=== PATIENT | male | born 1935 | race Caucasian/White ===

== ENCOUNTER 2017-11-09 18:27 | Emergency (ER) | payer MEDICARE, OTHER ==
[2017-11-09 19:31] LABS: Bilirubin Negative (Negative); Blood, Urine Small (Negative); Clarity TURBID (Clear); Glucose, Urine (Dipstick) Negative (Negative); Leukocyte Moderate (Negative); Nitrite Positive (Negative); Protein, Urine (Dipstick) 100 mg/dL (Neg-Trace); Specific Gravity, Urine 1.016 (1.002-1.036); Urobilinogen 0.2 mg/dL (0.2-1.0)
[2017-11-09 19:34] LABS: Bacteria/HPF 3+ HPF (None Seen); Pathc Cast-AUWi Flag 0.72 (0-2.49); RBC/HPF 0-3 HPF (0-3)
[2017-11-09 19:43] LABS: Hyaline Casts/LPF 0-3 HYALINE CAST LPF (0-3 Hyaline); Squamous Epithelial 0-3 HPF (0-3)
[2017-11-09 19:46] LABS: #Eosinphils 0.1 thou/uL (0.0-0.7); #Lymphocytes 1.3 thou/uL (1.20-3.40); #Monocytes 1.4 thou/uL (0.11-0.59); #Neutrophils 12.1 thou/uL (1.40-6.50); %Basophils 0.2 % (0.0-1.0); %Eosinophils 0.5 % (0.0-10.0); %Neutrophils 81.3 % (42.0-75.0); Hemoglobin 12.9 g/dL (14.0-18.0); Mean Corpuscular HGB CONC 33.3 g/dL (32.0-36.0); Mean Corpuscular Hemoglobin 30.3 pg (27.0-31.0); Mean Corpuscular Volume 91.1 fL (78.0-98.0); Mean Platelet Volume 7.6 fL (7.4-10.4); Platelet Count 194 thou/uL (130-400); Red Blood Cell (RBC) Count 4.24 mill/uL (4.70-6.10); White Blood Cell (WBC) Count 14.9 thou/uL (4.8-10.8)
[2017-11-09 20:05] LABS: ALT (SGPT) 9 U/L (8-55); AST (SGOT) 17 U/L (5-34); Albumin 4.3 g/dL (3.4-4.8); Alkaline Phosphatase 67 U/L (40-150); Anion Gap 15 mmol/L (10-20); BUN (Urea Nitrogen) 12 mg/dL (8.4-25.7); Bilirubin, Total 1.3 mg/dL (0.2-1.2); Calc. Creatinine Clearance 0 mL/min (70-130); Calcium 9.4 mg/dL (7.8-10.44); Carbon Dioxide 22 mmol/L (23-31); Chloride 99 mmol/L (98-107); Estimated GFR-MDRD 65; Globulin 3.9 g/dL (2.4-3.5); Glucose 110 mg/dL (83-110); Potassium 3.6 mmol/L (3.5-5.1); Protein, Total 8.2 g/dL (5.8-8.1); Sodium 132 mmol/L (136-145)
[2017-11-09] MEDS ORDERED: cefTRIAXone\\ROCEPHIN 2 GM VIAL ONE (20:12)
== END 2017-11-09 22:01 | disposition home or self-care (01) ==
LOC: ERS 18:27
DX: N30.00 Acute cystitis without hematuria (principal)
CPT/HCPCS: 36415; 80053; 81003; 81015; 83605; 85025; 87040; 87077; 87086; 87186; 96365; J0696

== ENCOUNTER 2020-01-04 18:42 | Inpatient (IN) | payer MEDICARE, OTHER ==
[2020-01-04 19:46] LABS: #Eosinphils 0.6 thou/uL (0.0-0.7); #Lymphocytes 0.8 thou/uL (1.20-3.40); #Monocytes 0.5 thou/uL (0.11-0.59); #Neutrophils 6.6 thou/uL (1.40-6.50); %Basophils 0.3 % (0.0-1.0); %Lymphocytes 9.4 % (21.0-51.0); %Monocytes 6.3 % (0.0-10.0); Hemoglobin 11.5 g/dL (14.0-18.0); Mean Corpuscular HGB CONC 34.3 g/dL (32.0-36.0); Mean Corpuscular Hemoglobin 30.9 pg (27.0-31.0); Mean Corpuscular Volume 90.2 fL (78.0-98.0); Mean Platelet Volume 7.6 fL (7.4-10.4); Platelet Count 150 thou/uL (130-400); RBC Distribution Width 12.3 % (11.5-14.5); Red Blood Cell (RBC) Count 3.72 mill/uL (4.70-6.10); White Blood Cell (WBC) Count 8.6 thou/uL (4.8-10.8)
[2020-01-04 20:13] LABS: ALT (SGPT) 9 U/L (8-55); AST (SGOT) 20 U/L (5-34); Albumin 3.8 g/dL (3.4-4.8); Alkaline Phosphatase 60 U/L (40-110); Anion Gap 14 mmol/L (10-20); BUN (Urea Nitrogen) 15 mg/dL (8.4-25.7); Bilirubin, Total 0.8 mg/dL (0.2-1.2); Calc. Creatinine Clearance 0 mL/min (70-130); Carbon Dioxide 25 mmol/L (23-31); Chloride 103 mmol/L (98-107); Estimated GFR-MDRD 65; Globulin 3.3 g/dL (2.4-3.5); Glucose 104 mg/dL (83-110); Potassium 3.9 mmol/L (3.5-5.1); Protein, Total 7.1 g/dL (5.8-8.1); Sodium 138 mmol/L (136-145)
--- NOTE | 2020-01-04 20:32 | RAD ---
Radiograph right hip 2 views: 01/04/2020 7:56 PM HISTORY: 84-year-old male status post acute right hip trauma from fall. FINDINGS: There is fracture at the inferior portion of the right femoral neck, with varus angulation. No disloc ation. IMPRESSION: Acute, traumatic, displaced fracture of the basicervical right femoral neck.
[2020-01-04] MEDS ORDERED: Morphine 4 MG/ML VIAL ONE (20:33)
[2020-01-04] MEDS ORDERED: Ondansetron PF 4 MG/2 ML Vial ONE (20:33)
--- NOTE | 2020-01-04 20:53 | RAD ---
RIGHT WRIST 3 VIEWS: Date: 01/04/2020 HISTORY: Fall with injury and pain. FINDINGS: There is a fracture of the distal radius. This fracture shows mild impaction with transverse componen t. There is a longitudinal component extending to the articular surface. Carpals appear intact. IMPRESSION: Fracture distal radius with impaction. Fracture line extends to the articular surface. POS: AGW
--- NOTE | 2020-01-04 20:57 | RAD ---
PORTABLE CHEST: Date: 01/04/2020 HISTORY: Trauma. FINDINGS: Lungs appear clear. No infiltrate or pneumothorax. Heart and mediastinum unremarkable. Osseous struct ures appear intact. IMPRESSION: No acute findings. POS: AGW
[2020-01-04 21:00] LABS: INR-International Normal Ratio 1.1; PTT 28.1 sec (22.9-36.1); Prothrombin Time 14.8 sec (12.0-14.7)
--- NOTE | 2020-01-04 21:01 | RAD ---
RIGHT KNEE 3 VIEWS: Date: 01/04/2020 HISTORY: Injury. Pain. FINDINGS/IMPRESSION: There has been prior fixation of the proximal tibia. There is a medial plate and screws transfixing t he proximal tibia and the tibial condyles and tibial plateaus. There are degenerative changes at the knee with spurring from the patella. No acute fracture identified. POS: AGW
--- NOTE | 2020-01-04 21:02 | RAD ---
AP PELVIS: Date: 01/04/2020 HISTORY: Fall with injury to right hip. FINDINGS: There is a displaced fracture involving the right femoral neck. Fracture line is at the base of the f emoral neck with mild displacement. Pelvis appears intact. IMPRESSION: Right femoral neck fracture. POS: AGW
[2020-01-04 21:49] LABS: Bilirubin Negative (Negative); Blood, Urine Negative (Negative); Clarity Clear (Clear); Glucose, Urine (Dipstick) Normal (Negative); Ketone, Urine Trace mg/dL (Negative); Leukocyte Negative Leu/uL (Negative); Nitrite Negative (Negative); Protein, Urine (Dipstick) 20 mg/dL (Neg-Trace); Specific Gravity, Urine 1.015 (1.002-1.036); Urobilinogen Normal mg/dL (Less than 2); pH, Urine 5.5 (5.0-9.0)
[2020-01-04] MEDS ORDERED: Ondansetron ODT 4 MG TAB PO PRN (22:12)
[2020-01-04] MEDS ORDERED: Morphine 4 MG/ML VIAL SLOW IVP PRN (22:12)
[2020-01-04] MEDS ORDERED: Dextrose 50% Abboject 50 ML SYRINGE SLOW IVP PRN (22:12)
[2020-01-04] MEDS ORDERED: Dextrose 5% in Water 1,000 ML IV PRN (22:12)
[2020-01-04] MEDS ORDERED: Cyclobenzaprine 10 MG TAB PO PRN (22:12)
[2020-01-04] MEDS ORDERED: Morphine 2 MG/ML VIAL SLOW IVP PRN (22:12)
[2020-01-04] MEDS ORDERED: Famotidine 20 MG TAB PO SCH (22:30)
--- NOTE | 2020-01-04 22:53 | HP ---
REQUESTING PHYSICIAN: Dr. Calix. CONSULTATIONS: Orthopedics, Dr. Tirado. 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 He was brought to the emergency department where he underwent evaluation and examination and was noted to have a right femoral neck fracture at which time we were asked to evaluate the patient for his admission and obtain Orthopedic consultation. The patient denied any loss of consciousness or syncopal episodes surrounding his fall. ALLERGIES: NONE. CURRENT MEDICATIONS: None. PAST MEDICAL HISTORY: Colon cancer. The patient reports being cancer free for 6 years. SURGICAL HISTORY: Colon surgery x8. SOCIAL HISTORY: The patient denies drug, tobacco, or alcohol use. 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 REVIEW OF SYSTEMS: A 10-point review of systems is negative as otherwise stated. PHYSICAL EXAMINATION: VITAL SIGNS: Blood pressure 157/76, heart rate 87, respirations 18, oxygen saturation is 96% on room air, temperature is 98.4. GENERAL: The patient is resting comfortably in bed. He is awake, alert, conversant, appropriate. His Winifred Coma Scale is 15. HEENT: Head is normocephalic and atraumatic. Eyes; extraocular motion intact. PERRLA bilaterally. Ears are atraumatic without discharge. Oropharynx is clear. NECK: Nontender. Trachea is midline with no JVD. CHEST: Clear to auscultation with good inspiratory and expiratory effort. HEART: Regular rate and rhythm. ABDOMEN: Soft, flat, nontender with active bowel sounds. PELVIS: Stable with tenderness to palpation to his right hip consistent with his fracture. EXTREMITIES: Neurovascularly intact x4. BACK: By report is atraumatic and nontender. LABORATORY FINDINGS: White blood cell count 8.6, hemoglobin 11.5, hematocrit 33.6, platelets 150. Sodium 138, potassium 3.9, chloride 103, CO2 25, BUN 15, creatinine 1.08. Glucose 104. LFTs are unremarkable. BNP is 97.6. Creatine kinase 278. Urinalysis is unremarkable. INR 1.1. RADIOGRAPHIC REPORTS: AP chest x-ray shows no acute findings. Views of the right wrist show fracture of the distal radius with slight impaction. Views of the right hip show an acute traumatic displaced fracture of the basicervical right femoral neck. ASSESSMENT: 1. Status post fall from tractor approximately 5 feet. 2. Right distal radius fracture. 3. Right femoral neck fracture. 4. Acute pain secondary to above. PLAN: Plan will be to admit the patient to the surgical floor. He will be on pain control, pulmonary toilet, gastritis, mechanical VTE prophylaxis. Patient will be made n.p.o. after midnight. Dr. Tirado was notified by the emergency department. The evaluation, examination, laboratory, and radiographic findings were discussed with Dr. Degroot in the emergency department. Job ID: [id number]
[2020-01-04] MEDS: Acetaminophen 500 MG TAB PO SCH (23:38)
[2020-01-04] MEDS: Ketorolac Tromethamine 30 MG/ML VIAL IVP SCH (23:38)
[2020-01-04] MEDS: Sodium Chloride 0.9% 1,000 ML IV SCH (23:39)
[2020-01-05 01:35] VITALS: BMI 23.6
[2020-01-05] MEDS: Ketorolac Tromethamine 30 MG/ML VIAL IVP SCH ×2 (05:51→12:10)
[2020-01-05] MEDS: Acetaminophen 500 MG TAB PO SCH ×3 (05:52→18:33)
[2020-01-05 05:54] LABS: #Eosinphils 0.7 thou/uL (0.0-0.7); #Lymphocytes 0.7 thou/uL (1.20-3.40); #Monocytes 0.5 thou/uL (0.11-0.59); %Basophils 0.4 % (0.0-1.0); %Eosinophils 11.3 % (0.0-10.0); %Lymphocytes 12.3 % (21.0-51.0); %Monocytes 8.9 % (0.0-10.0); %Neutrophils 67.1 % (42.0-75.0); Hemoglobin 10.4 g/dL (14.0-18.0); Mean Corpuscular HGB CONC 30.1 g/dL (32.0-36.0); Mean Corpuscular Hemoglobin 29.9 pg (27.0-31.0); Mean Corpuscular Volume 99.2 fL (78.0-98.0); Mean Platelet Volume 8.3 fL (7.4-10.4); Platelet Count 117 thou/uL (130-400); RBC Distribution Width 12.6 % (11.5-14.5); Red Blood Cell (RBC) Count 3.46 mill/uL (4.70-6.10)
[2020-01-05 05:56] LABS: Phosphorus 2.5 mg/dL (2.3-4.7)
[2020-01-05 05:57] LABS: Anion Gap 16 mmol/L (10-20); BUN (Urea Nitrogen) 15 mg/dL (8.4-25.7); Calc. Creatinine Clearance 64 mL/min (70-130); Calcium 7.9 mg/dL (7.8-10.44); Carbon Dioxide 19 mmol/L (23-31); Chloride 107 mmol/L (98-107); Estimated GFR-MDRD 74; Glucose 85 mg/dL (83-110); Magnesium 1.7 mg/dL (1.6-2.6); Potassium 3.6 mmol/L (3.5-5.1); Sodium 138 mmol/L (136-145)
[2020-01-05] MEDS ORDERED: CEFAZOLIN 2 GM in Premix Bag 1 BAG IVPB SCH (07:15)
[2020-01-05] MEDS ORDERED: Magnesium 2 GM/50 ML 2 GM in Premix Bag 1 BAG IVPB SCH (08:15)
[2020-01-05] MEDS ORDERED: Potassium Phosphate 15 MMOL, Magnesium Sulfate 2 GM in Sodium Chloride 0.9% 250 ML 250 ML IVPB SCH (08:15)
[2020-01-05 08:43] LABS: SARS-CoV-2 MS2 Positive; SARS-CoV-2 N Gene Negative; SARS-CoV-2 S Gene Negative; SARS-CoV-2 by NAA Not Detected (NotDetected); SARS-CoV-2 orf1ab Negative
--- NOTE | 2020-01-05 08:58 | HP ---
CONSULTING PROVIDER: Mark Calix MD HISTORY OF PRESENT ILLNESS: Mr. Yen is an 84-year-old male who has fallen. The patient works at his farm, doing heavy work and tractor work. He was stepping out of a tall tractor when he fell from the step. He landed hard on his right wrist and his hip. He fell approximately 3 days ago. He has been resting at home, hoping he would feel better, but he has not. He has been unable to ambulate and is having worsening pain. He presented to the emergency department last night for orthopedic evaluation. X-ray showed a right femoral neck fracture with displacement. The patient has been admitted to the hospital. His right wrist has been splinted. PAST MEDICAL HISTORY: Colon cancer, stage IV. The patient reports that he has been cancer-free for 6 years. PAST SURGICAL HISTORY: Previous colon resection multiple times. SOCIAL HISTORY: The patient denies tobacco, alcohol, or drug use. He lives with his . He still works doing farm work. He does not use any assistive device. REVIEW OF SYSTEMS: Negative 10-point review of systems except for hip pain with movement. IMAGES: Right hip x-rays demonstrate a right femoral neck fracture with shortening and varus alignment. There is displacement. Right wrist x-rays demonstrate a distal radial fracture with some impaction. No obvious significant displacement. PHYSICAL EXAMINATION: VITAL SIGNS: Temperature is 97.3, pulse is 71, respiratory rate is 14, oxygen saturation 96%, and blood pressure 128/71. GENERAL: He is lying supine, alert, no apparent distress. RESPIRATORY: Breathing comfortably. ABDOMEN: Soft, nontender, nondistended. CARDIOVASCULAR: Pulses regular and peripherally palpable. MUSCULOSKELETAL: The patient's right upper extremity is in a splint. He has swelling of his digits. He is able to flex and extend the digits. Lower extremities are neurovascularly intact. His right leg is shortened and externally rotated. He has pain with hip motion. He is able to flex and extend the foot and ankle. IMPRESSION: Right femoral neck fracture and right distal radial fracture. PLAN: At this point, I think the patient will benefit from surgical intervention. He remains a very active and healthy individual despite his history of colon cancer. He is continuing to do farm work. We will plan for hemiarthroplasty of the hip to restore the ability to mobilize and get him up and out of bed. Goal is to prevent complications of prolonged bedrest. Risks have been reviewed in detail. We can treat his wrist nonoperatively. We will proceed with surgery today. He should remain n.p.o. He will have antibiotics on-call to the operating room. Job ID: [id number]
[2020-01-05] MEDS ORDERED: Potassium Phosphate 15 MMOL in Sodium Chloride 0.9% 250 ML 250 ML IVPB SCH (09:00)
[2020-01-05] MEDS ORDERED: Magnesium Sulfate 2 GM in Sodium Chloride 0.9% 100 ML IVPB SCH (09:00)
[2020-01-05] MEDS: Famotidine 20 MG TAB PO SCH ×2 (09:01→21:24)
[2020-01-05] MEDS: Sodium Chloride 0.9% 1,000 ML IV SCH (09:02)
[2020-01-05] MEDS: Polyethylene Glycol 3350 17 GM Packet PO SCH (09:10)
[2020-01-05] MEDS: Senokot S 8.6-50 MG TAB PO SCH ×2 (09:11→21:24)
[2020-01-05] MEDS ORDERED: PROPOFOL 200 MG/20 ML VIAL ONE (10:29)
[2020-01-05] MEDS ORDERED: Glycopyrrolate 0.2 MG/ML 5 ML SYRINGE ONE (10:29)
[2020-01-05] MEDS ORDERED: Rocuronium Bromide 10 MG/ML (10ML VIAL) ONE (10:29)
[2020-01-05] MEDS ORDERED: Ondansetron PF 4 MG/2 ML Vial ONE (10:29)
[2020-01-05] MEDS ORDERED: PHENYLEPHRINE-NS 100 MCG/ML 10 ML SYRINGE ONE (10:29)
[2020-01-05] MEDS ORDERED: Fentanyl 100 MCG/2 ML VIAL ONE (12:20)
[2020-01-05] MEDS ORDERED: Ondansetron HCl/PF 4 MG/2 ML Vial IVP PRN (14:08)
[2020-01-05] MEDS ORDERED: Promethazine HCl 25 MG/ML VIAL IM PRN (14:08)
[2020-01-05] MEDS ORDERED: Promethazine HCl 25 MG/ML VIAL SLOW IVP PRN (14:08)
--- NOTE | 2020-01-05 15:14 | RAD ---
EXAM: Right hip: One view INDICATIONS: Postop hip replacement COMPARISON: None. FINDINGS: Postop changes noted. Hip prosthesis appears adequately positioned. IMPRESSION: Postop right hip
--- NOTE | 2020-01-05 15:14 | RAD ---
XR Pelvis AP STANDARD History: Hip arthroplasty Comparison: Radiograph prior day Findings: Satisfactory appearance right hip hemiarthroplasty. Obturator rings are intact. Impression: Satisfactory appearance right hip hemiarthroplasty.
[2020-01-05] MEDS: CEFAZOLIN 2 GM in Premix Bag 1 BAG IVPB SCH ×2 (17:00→21:25)
--- NOTE | 2020-01-05 19:10 | OP ---
DATE OF PROCEDURE: 01/05/2020 OPERATION PERFORMED: Right hip bipolar hemiarthroplasty. PREOPERATIVE DIAGNOSIS: Right hip femoral neck fracture. POSTOPERATIVE DIAGNOSIS: Right hip femoral neck fracture. COMPLICATIONS: None. ESTIMATED BLOOD LOSS: Minimal. [facility]: Yolanda Monaco PA-C. IMPLANTS: DePuy Basic press-fit stem size 6 with a +5 femoral head and a 55-mm bipolar shell. INDICATIONS: Mr. Yen is an 84-year-old male who has fallen off a tractor and fractured his right femoral neck. He also has fractured his right distal radius. He has been indicated for hemiarthroplasty of the hip and closed treatment of the distal radius. Risks have been reviewed in detail. He has elected to proceed with the operation. DESCRIPTION OF PROCEDURE: Mr. Yen was identified in the preoperative holding area. His correct extremity was marked. He was carried to the operating room. He was positioned supine. General anesthesia was induced. A multidisciplinary time-out was performed. The right lower extremity was prepped and draped in sterile fashion. We began the procedure by performing a posterior approach to the hip. We dissected down through the subcutaneous tissues to the fascia, which was opened. This brought us down to the short external rotators of the hip. We preserved the piriformis tendon, but incised the gemelli muscle and performed a capsulotomy. At this point, we removed the broken femoral head and neck fragments. We then performed a new osteotomy of the femoral neck. Next, we prepared the femoral canal by reaming and broaching up to a size 6. This gave a good fit and was stable. We trialed a +5 length with a 55 shell. This gave good range of motion and stability as well. Leg length was equal. Next, we removed the trial components. We thoroughly irrigated with copious lavage. We then placed our final components. Again, we reduced the hip. Next, we closed the short external rotators and the capsule with Ethibond suture through drill holes. We then performed a layered closure. A sterile dressing was applied. The patient was taken to the recovery room in good condition. The medical staff assistant surgeon was responsible for positioning the patient, preparing the injured extremity, applying the tourniquet, and assisting in preparation for surgery. The medical staff assistant was instrumental in reducing the injured limb by applying traction and reduction maneuvers as well as holding retractors and reduction tools. The medical staff assistant also was instrumental in assisting in exposure throughout the operation using appropriate retractors. The medical staff assistant participated in closure of the operative site as well as dressing application and splint application. Job ID: [id number]
[2020-01-06] MEDS: Acetaminophen 500 MG TAB PO SCH (00:47)
[2020-01-06] MEDS ORDERED: Acetaminophen/Codeine 30-300mg Tablet PO PRN ×2 (03:04)
--- NOTE | 2020-01-06 04:10 | PRG ---
DATE OF SERVICE: 01/05/2020 SUBJECTIVE: The patient was seen this evening during rounds. He was awake and alert. He is confused and delirious. He did not recall that he was in the hospital or why he was here. He did seem to be orientable initially, but got confused quickly after that. He reported pain in his right buttock area. OBJECTIVE: VITAL SIGNS: Temperature 99.4, pulse 83, respirations 16, oxygen saturation 94% on room air, blood pressure 154/65. GENERAL: Well-appearing elderly male, lying in bed, with no signs of acute distress. PULMONARY: Equal chest rise and fall. No signs of acute respiratory distress. ASSESSMENT: 1. Status post jump from a tractor. 2. Right hip fracture, status post repair. 3. History of colon cancer. 4. Acute delirium. PLAN: Continue current diet. Add Tylenol No. 3 to pain regimen. Discontinue IV morphine. One time Serax dose this evening as patient is becoming more and more agitated throughout the evening. Start physical and occupational therapy tomorrow. Promote good sleep hygiene to resolve delirium. Job ID: [id number]
[2020-01-06] MEDS: Acetaminophen 325 MG TAB PO SCH ×3 (05:34→18:15)
[2020-01-06 05:42] LABS: #Eosinphils 0.5 thou/uL (0.0-0.7); #Lymphocytes 0.7 thou/uL (1.20-3.40); #Monocytes 0.6 thou/uL (0.11-0.59); %Basophils 0.2 % (0.0-1.0); %Eosinophils 8.5 % (0.0-10.0); %Lymphocytes 12.2 % (21.0-51.0); %Monocytes 10.6 % (0.0-10.0); %Neutrophils 68.4 % (42.0-75.0); Hemoglobin 9.4 g/dL (14.0-18.0); Mean Corpuscular HGB CONC 34.3 g/dL (32.0-36.0); Mean Corpuscular Hemoglobin 30.8 pg (27.0-31.0); Mean Corpuscular Volume 89.6 fL (78.0-98.0); Mean Platelet Volume 7.4 fL (7.4-10.4); Platelet Count 144 thou/uL (130-400); Red Blood Cell (RBC) Count 3.05 mill/uL (4.70-6.10); White Blood Cell (WBC) Count 5.8 thou/uL (4.8-10.8)
[2020-01-06 05:56] LABS: Anion Gap 14 mmol/L (10-20); BUN (Urea Nitrogen) 16 mg/dL (8.4-25.7); Calc. Creatinine Clearance 66 mL/min (70-130); Calcium 7.6 mg/dL (7.8-10.44); Carbon Dioxide 20 mmol/L (23-31); Chloride 104 mmol/L (98-107); Estimated GFR-MDRD 77; Glucose 97 mg/dL (83-110); Magnesium 2.1 mg/dL (1.6-2.6); Phosphorus 2.6 mg/dL (2.3-4.7); Potassium 3.8 mmol/L (3.5-5.1); Sodium 134 mmol/L (136-145)
[2020-01-06] MEDS ORDERED: Potassium Phosphate 15 MMOL in Sodium Chloride 0.9% 250 ML 250 ML IVPB SCH ×2 (07:30→09:00)
[2020-01-06] MEDS: Polyethylene Glycol 3350 17 GM Packet PO SCH (10:09)
[2020-01-06] MEDS: Senokot S 8.6-50 MG TAB PO SCH ×2 (10:10→20:13)
[2020-01-06] MEDS: Famotidine 20 MG TAB PO SCH ×2 (10:10→20:13)
[2020-01-06] MEDS: Ondansetron PF 4 MG/2 ML Vial IVP PRN (18:20)
--- NOTE | 2020-01-06 18:56 | PRG ---
DATE OF SERVICE: 01/06/2020 SUBJECTIVE: The patient was seen during morning rounds, resting comfortably in bed. The patient was easily aroused and reoriented. The patient's window shades were opened to let light in. The patient was able to carry on a lengthy conversation and was not confused once reoriented. The patient is postop day #1, status post right hip bipolar hemiarthroplasty. The patient's pain is well controlled at this time. The patient's nurse reports he has not eaten much since postop. OBJECTIVE: VITAL SIGNS: Temperature 97.3, pulse 71, respirations 18, SpO2 of 93% on room air, and blood pressure 105/55. GENERAL: Elderly male, well appearing, in no acute distress. PULMONARY: Good inspiratory and expiratory effort, no respiratory distress. CARDIAC: Regular rate, regular rhythm, no pedal edema. ABDOMEN: Soft, nontender, nondistended. EXTREMITIES: Moves all extremities, neurovascularly intact x4, right hip dressing is clean, dry, and intact. NEUROLOGIC: No focal deficits. LABORATORY DATA: WBC 5.8, RBC 3.05, hemoglobin 9.4, and hematocrit 27.4. Sodium 134, potassium 3.8, chloride 104, BUN 16, creatinine 0.94, estimated GFR 77, glucose 97, calcium 7.6, phosphorus 2.6, magnesium 2.1. DIAGNOSTICS: No new diagnostics to review today. ASSESSMENT: 1. Status post fall from tractor. 2. Right hip fracture, status post repair. 3. History of colon cancer. 4. Acute delirium, resolved. PLAN: Continue regular diet and pain regimen. Increase physical and occupational therapy. Replace electrolytes. A rehab screen has been placed as the patient will need continued physical and occupational therapy. The plan was discussed with the patient, who agrees. The patient was seen by Dr. Crenshaw. We will continue to promote good sleep hygiene daily. Job ID: [id number]
[2020-01-06] MEDS: Aspirin 81 mg Enteric Coated Tablet PO SCH (20:13)
[2020-01-07] MEDS: Acetaminophen 325 MG TAB PO SCH ×2 (00:14→05:45)
--- NOTE | 2020-01-07 03:01 | PRG ---
DATE OF SERVICE: 01/06/2020 SUBJECTIVE: The patient was seen this evening during rounds. He was lying in bed, resting comfortably and asleep with no signs of acute distress. Nursing reported no acute events. OBJECTIVE: VITAL SIGNS: Temperature 98.1, pulse 84, respirations 19, oxygen saturation 96% on room air, and blood pressure 160/70. ASSESSMENT: 1. Status post jump from tractor. 2. Right femoral neck fracture, status post repair. 3. History of colon cancer. 4. The patient likely with essential hypertension. PLAN: Continue current diet and pain regimen. Continue physical and occupational therapy. Trauma Day Team to possibly start the patient on antihypertensive, which he can be discharged home on and followed up by his PCP. He is pending discharge to acute rehab facility. He is ready for discharge at this time. Job ID: [id number]
[2020-01-07 05:26] LABS: Hemoglobin 10.6 g/dL (14.0-18.0); Mean Corpuscular HGB CONC 32.2 g/dL (32.0-36.0); Mean Corpuscular Hemoglobin 29.1 pg (27.0-31.0); Mean Corpuscular Volume 90.2 fL (78.0-98.0); Mean Platelet Volume 7.8 fL (7.4-10.4); Platelet Count 201 thou/uL (130-400); RBC Distribution Width 12.1 % (11.5-14.5); Red Blood Cell (RBC) Count 3.65 mill/uL (4.70-6.10); White Blood Cell (WBC) Count 4.2 thou/uL (4.8-10.8)
[2020-01-07 05:41] LABS: Anion Gap 17 mmol/L (10-20); BUN (Urea Nitrogen) 18 mg/dL (8.4-25.7); Calc. Creatinine Clearance 73 mL/min (70-130); Calcium 8.5 mg/dL (7.8-10.44); Carbon Dioxide 19 mmol/L (23-31); Chloride 104 mmol/L (98-107); Estimated GFR-MDRD 86; Glucose 99 mg/dL (83-110); Magnesium 2.1 mg/dL (1.6-2.6); Phosphorus 2.7 mg/dL (2.3-4.7); Potassium 4.4 mmol/L (3.5-5.1); Sodium 136 mmol/L (136-145)
[2020-01-07] MEDS: Ondansetron PF 4 MG/2 ML Vial IVP PRN ×2 (09:01→15:06)
[2020-01-07] MEDS: Senokot S 8.6-50 MG TAB PO SCH ×3 (09:08→20:11)
[2020-01-07] MEDS: Polyethylene Glycol 3350 17 GM Packet PO SCH ×2 (09:08→10:50)
[2020-01-07] MEDS: Aspirin 81 mg Enteric Coated Tablet PO SCH ×2 (09:09→20:11)
--- NOTE | 2020-01-07 09:51 | PRG ---
DATE OF SERVICE: 01/07/2020 SUBJECTIVE: Mr. Yen is doing better today. He was somewhat depressed yesterday. He has low energy. His pain is controlled. No complications. No chest pain or shortness of breath. OBJECTIVE: VITAL SIGNS: Temperature is 98.2, pulse is 85, respiratory rate is 16, and blood pressure 138/78. GENERAL: He is alert, lying supine, in no apparent distress. LUNGS: Breathing comfortably. EXTREMITIES: Right lower extremity dressing is clean, dry, and intact. He is neurovascularly intact in the foot and ankle. LABORATORY DATA: Hemoglobin is 10.6, hematocrit is 32.9. IMPRESSION: Status post right hip hemiarthroplasty for femoral neck fracture. PLAN: The patient will continue to mobilize with physical therapy. Continue pain control. Discharge planning. DVT prophylaxis. Job ID: [id number]
[2020-01-07] MEDS: Scopolamine 1.5 mg/72 hour Patch TD SCH (10:45)
[2020-01-07] MEDS: Acetaminophen/Codeine 30-300mg Tablet PO SCH ×3 (13:14→23:05)
[2020-01-07] MEDS ORDERED: MD-Gastroview 120 ML BOT ONE (14:50)
--- NOTE | 2020-01-07 16:22 | RAD ---
2 VIEW ABDOMEN: Date: 01/07/2020 Supine and upright views. INDICATION: Assess NG tube placement. FINDINGS/IMPRESSION: NG tube passes at EG junction with tip overlying the mid gastric body. There are gas-filled dilated loops of small bowel in the mid abdomen consistent with ileus or small b owel obstruction. Skin rabia overlie the right abdomen. No evidence of free air on the upright exam . POS: [facility]
--- NOTE | 2020-01-07 18:50 | RAD ---
Small bowel series: 01/07/2020 HISTORY: 84-year-old male with abdominal pain FINDINGS: Multiple air-filled dilated small bowel loops. Small amount of gas in nondilated right colon. Contrast injected through esophagogastric tube. Immediate image demonstrates most of the contrast in fundus of the stomach, and small amounts in collapsed body and antrum, and in first and second stages of duodenum, nondilated. 1 hour image demonstrates gastroesophageal reflux around the esophagogastric tube. The the rest of th e contrast material is in the fundus of the stomach. There is no longer any contrast in the corpus or antrum of the stomach, or in the duodenum, or anywhere else in the small intestine. The 2 hour shabnam ge demonstrates contrast excretion into the right renal collecting system despite the fact that there has been no CT or IVP recently. Faint small amount of contrast material is present in what is presumed to be jejunal loops in the lef t lateral abdomen. Skin rabia over the right hip over bipolar endoprosthesis. The NG tube was reportedly placed on suction because the patient was vomiting, and there is little co ntrast material in the stomach on the two-hour image. There is not enough residual contrast material in the stomach for a diagnostic small bowel series. IMPRESSION: 1. Nondiagnostic study. Esophagogastric tube was placed on suction, and there is very little contrast material on the two-hour image. 2. Excretion of contrast into right renal collecting system, despite the fact that there has been no recent CT or IVP.
[2020-01-07] MEDS: Sodium Chloride 0.9% 1,000 ML IV SCH (23:05)
--- NOTE | 2020-01-08 00:29 | PRG ---
DATE OF SERVICE: 01/07/2020 SUBJECTIVE: Patient was seen this evening during rounds. He was lying in bed, resting comfortably, and asleep with no signs of acute distress. Nursing reported no acute events. Earlier this evening, patient was supposed to receive a small-bowel follow-through for an ileus versus small-bowel obstruction. There was miscommunication between the nurse and Radiology and his NG tube was hooked up to suction before the end of the study and in fact the study was terminated. OBJECTIVE: VITAL SIGNS: Temperature 97.6, pulse 86, respirations 20, oxygen saturation 97% on room air, and blood pressure 166/71. ASSESSMENT: 1. Status post jump from tractor. 2. Right femoral neck fracture. 3. Right distal radius fracture. 4. Ileus versus small-bowel obstruction. 5. History of colon cancer. PLAN: Continue n.p.o. Start normal saline at 100 an hour. We will hold off on doing a small-bowel follow-through this evening and reassess in the morning. Job ID: [id number]
[2020-01-08] MEDS: Acetaminophen/Codeine 30-300mg Tablet PO SCH ×4 (07:16→23:35)
[2020-01-08] MEDS: Senokot S 8.6-50 MG TAB PO SCH ×2 (08:05→20:16)
[2020-01-08] MEDS: Aspirin 81 mg Enteric Coated Tablet PO SCH ×2 (08:05→20:16)
[2020-01-08] MEDS: Polyethylene Glycol 3350 17 GM Packet PO SCH (08:05)
[2020-01-08] MEDS: Sodium Chloride 0.9% 1,000 ML IV SCH ×2 (08:08→18:24)
[2020-01-08 08:22] LABS: Anion Gap 15 mmol/L (10-20); BUN (Urea Nitrogen) 29 mg/dL (8.4-25.7); Calc. Creatinine Clearance 75 mL/min (70-130); Calcium 8.8 mg/dL (7.8-10.44); Carbon Dioxide 25 mmol/L (23-31); Chloride 104 mmol/L (98-107); Estimated GFR-MDRD 89; Glucose 117 mg/dL (83-110); Magnesium 2.1 mg/dL (1.6-2.6); Phosphorus 2.4 mg/dL (2.3-4.7); Potassium 4.2 mmol/L (3.5-5.1); Sodium 140 mmol/L (136-145)
[2020-01-08 08:40] LABS: Hemoglobin 9.9 g/dL (14.0-18.0); Mean Corpuscular HGB CONC 32.9 g/dL (32.0-36.0); Mean Corpuscular Hemoglobin 29.8 pg (27.0-31.0); Mean Corpuscular Volume 90.5 fL (78.0-98.0); Mean Platelet Volume 7.4 fL (7.4-10.4); Platelet Count 242 thou/uL (130-400); RBC Distribution Width 12.2 % (11.5-14.5); Red Blood Cell (RBC) Count 3.34 mill/uL (4.70-6.10); White Blood Cell (WBC) Count 4.4 thou/uL (4.8-10.8)
[2020-01-08 09:51] LABS: Band 40 % (5-11); Eosinophils 7 % (0-10); Lymphocytes 16 % (21-51); MDiff Complete? YES; Metamyelocyte 1 % (0-0); Monocytes 20 % (0-10); Myelocyte 1 % (0-0); Neutrophil 14 % (42-75); Platelet Morphology Comment Appears Adequate; Polychromasia SLIGHT = 2-3 cells (100X) (0-2/hpf)
--- NOTE | 2020-01-08 09:51 | RAD ---
Radiograph abdomen one view: 01/08/2020 6:36 AM HISTORY: 84-year-old male with abdominal pain. Status post replacement of NG tube. COMPARISON: Final image for the small bowel series of 01/07/2020 FINDINGS: There is even less contrast material, a tiny amount, in the fundus of the stomach. NG tube remains wi th distal tip at the fundus. Moderately high density material in the left side of the abdomen may represent a very delayed nephrog ifeanyi. Excreted contrast material in right renal collecting system and urinary bladder. Dilated air-filled loops of small bowel. Gas in nondilated right colon. Skin rabia over right hip. Right bipolar hip endoprosthesis. IMPRESSION: 1.) Dense mass in the left side of the abdomen is questionable for a very delayed abnormal left nephr ogram. 2) excreted contrast material in right renal collecting system and urinary bladder, despite the fact that the patient has not had a recent CT or IVP (has the patient had cardiac catheterization?). 3) Apparently no oral contrast material in the small intestine. 4) a very small amount of residual contrast material in the stomach after NG tube suction. 5) recommend noncontrast CT of abdomen and pelvis, unless the patient has had a very recent CT at out side facility of which we are unaware.
--- NOTE | 2020-01-08 13:49 | PRG ---
DATE OF SERVICE: 01/07/2020 SUBJECTIVE: Mr. Yen is an 84-year-old male, who is hospital day #3 and postop day #2, status post right hip hemiarthroplasty for femoral neck fracture. The patient reports that he has been feeling nauseous when he gets up and he that his pain is not very well controlled and that he needs something stronger. The patient has not had a bowel movement and describes just mild abdominal discomfort. OBJECTIVE: VITAL SIGNS: Temperature 98.2, pulse 85, respiratory rate 16, O2 saturation 95% on room air, and blood pressure systolic 140s to 150s. GENERAL: Elderly male, well appearing, in no acute distress. PULMONARY: Good inspiratory and expiratory effort. No respiratory distress. CARDIAC: Regular rate. Regular rhythm. ABDOMEN: Soft, nontender. Distention is present. EXTREMITIES: Moving all extremities well. Right hip dressing is clean, dry, and intact. NEUROLOGIC: No focal deficits. LABORATORY DATA: White count 4.2, hemoglobin 10.6, hematocrit 32.9, and platelets 201. Sodium 136, potassium 4.4, phosphorus 2.7, and magnesium 2.1. ASSESSMENT: 1. Status post fall from tractor. 2. Status post right hip hemiarthroplasty for femoral neck fracture. 3. History of colon cancer. 4. Acute delirium, resolved. 5. Suspected ileus. PLAN: 1. We will give the patient scopolamine patch for nausea. 2. Schedule the patient Tylenol 3 since his pain is not currently well controlled. The patient's blood pressures have been elevated, systolics 150s to 160s, suspect maybe due to pain. We will re-evaluate when the patient's pain is better managed. 3. Encouraged the patient to ambulate and sit up in chair as ileus was suspected due to distended abdomen and lack of a bowel movement. 4. DVT prophylaxis with SCDs. 5. Referral has been sent to [facility] for rehab placement, awaiting approval. The patient was seen and evaluated by Dr. Crenshaw during morning rounds. Discussed plan of care with the patient, who is in agreement. Job ID: [id number] [id number]
--- NOTE | 2020-01-08 15:10 | RAD ---
Small bowel series: 01/08/2020 HISTORY: 84-year-old male with abdominal distention. FINDINGS: Button Spindler view demonstrates a tiny amount of residual Gastrografin in the fundus of a collapsed gastric l umen, adjacent to the tip of esophagogastric tube. After injection of Gastrografin through the esophagogastric tube, the contrast material distends the fundus, but never reaches the distal stomach or small bowel. Instead, contrast is again demonstrated refluxing into a tortuous, multifocal a dilated distal esophagus around the esophagogast vinicio tube. Again noted is the excreted faint contrast material within the somewhat dilated right renal collectin g system, despite the fact that the patient never received IV contrast. Again noted is the moderately dense mass in the left side of the abdomen which may represent a delaye d left nephrogram. No interval change in the multiple dilated air-filled small bowel loops. Small amount of gas in nondi lated right colon. Excreted contrast material in the urinary bladder. At 3 hour image, which shows no progression of contrast from the gastric fundus, the study was termin ated. IMPRESSION: 1.) Second failed Gastrografin small bowel series. Contrast never reaches the distal stomach. 2) gastroesophageal reflux into the distal esophagus with multiple tertiary contractions. 3) excretion of contrast material into right renal collecting system despite the fact the patient has not received IV contrast injection. This may represent absorption of the Gastrografin into the blood stream through the gastric or esophageal mucosa, or perhaps via blood vessels exposed to the mu cosa in the esophagus or stomach. 4) recommend noncontrast CTs of abdomen and pelvis after GI suction.
[2020-01-08] MEDS ORDERED: MD-Gastroview 120 ML BOT ONE (15:26)
--- NOTE | 2020-01-08 20:08 | RAD ---
KUB: 01/08/2020 COMPARISON: Prior study on same day HISTORY: Evaluate residual contrast media FINDINGS: There is a nasogastric tube in the left upper quadrant with small volume residual contrast media within the stomach. There is residual contrast media within loops of small bowel within the lateral mid left abdomen. Small bowel dilation is noted suggesting severe ileus or small bowel obstru ction. There is contrast media within the urinary bladder as well as the intrarenal collecting system and ur eter on the right. There is a hip prosthesis on the left. IMPRESSION: KUB as above.
--- NOTE | 2020-01-08 22:09 | CT ---
EXAM: ABDOMEN AND PELVIC CT SCAN WITHOUT IV CONTRAST: 01/08/20 HISTORY: Possible gastric outlet obstruction. Failed small bowel studies. FINDINGS: Minimal bilateral pleural effusion/pleural thickening with some pleural based linear and parenchymal changes, nonspecific. Enteric catheter noted extending into a nondistended stomach. The liver appears unremarkable. There does appear to be at least one gallstone in the gallbladder without pericholecys tic fluid or fat stranding or other signs of acute cholecystitis. The pancreas, spleen, adrenal gland s appear unremarkable. Both kidneys are small in size with some mild dilatation of the right upper re nal collecting system and renal pelvis and mildly dilated ureter down to the upper pelvis although th e etiology of this proximal dilatation is not evident from this study. There are dilated loops of sma ll bowel mostly in central and left abdomen, some of which are fairly densely opacified with contrast and associated with a large left anterior abdominal wall herniation of the small bowel at the site of a left sided colostomy. In the right anterior abdominal wall at the level of the umbilicus, there is a small abdominal wall hernia defect containing a loop of nondilated small bowel with a generalize d small caliber small bowel going to and coming from this hernia. Extensive postoperative changes are noted in the posterior pelvis and presacral region presumably from prior surgery. Bilateral fat cont aining inguinal hernias. IMPRESSION: 1. Markedly dilated small bowel primarily in the mid and left abdomen with herniation of a dilat ed small bowel loop into the left anterior colostomy site. 2. Right sided anterior abdominal wall hernia defect containing a very narrowed loop of small b owel which could potentially be the site of bowel obstruction. Given these multiple hernias, the poss ibility of a closed loop type obstruction should be considered. 3. Mild dilatation of the right upper collecting system and upper ureter etiology of which is u ncertain from this study. 4. Extensive postop changes in the rectal region presumably from prior surgery. 5. Minimal pleural and parenchymal changes noted in the lower lung zones, nonspecific, but havi ng more of a chronic appearance. 6. Evidence for at least one gallstone in the gallbladder. POS: [facility]
[2020-01-09] MEDS: Sodium Chloride 0.9% 1,000 ML IV SCH ×2 (05:31→17:16)
[2020-01-09] MEDS: Acetaminophen/Codeine 30-300mg Tablet PO SCH ×4 (05:32→23:37)
[2020-01-09 06:50] LABS: Anion Gap 20 mmol/L (10-20); BUN (Urea Nitrogen) 32 mg/dL (8.4-25.7); Calc. Creatinine Clearance 80 mL/min (70-130); Calcium 8.5 mg/dL (7.8-10.44); Carbon Dioxide 20 mmol/L (23-31); Chloride 107 mmol/L (98-107); Estimated GFR-MDRD Greater than 90; Glucose 94 mg/dL (83-110); Magnesium 2.1 mg/dL (1.6-2.6); Phosphorus 2.5 mg/dL (2.3-4.7); Potassium 3.8 mmol/L (3.5-5.1); Sodium 143 mmol/L (136-145)
[2020-01-09 06:59] LABS: Band 36 % (5-11); Eosinophils 10 % (0-10); Hemoglobin 10.9 g/dL (14.0-18.0); Lymphocytes 9 % (21-51); MDiff Complete? YES; Mean Corpuscular HGB CONC 33.4 g/dL (32.0-36.0); Mean Corpuscular Hemoglobin 31.6 pg (27.0-31.0); Mean Corpuscular Volume 94.5 fL (78.0-98.0); Mean Platelet Volume 7.7 fL (7.4-10.4); Monocytes 7 % (0-10); Neutrophil 38 % (42-75); Platelet Count 242 thou/uL (130-400); RBC Distribution Width 12.4 % (11.5-14.5); Red Blood Cell (RBC) Count 3.44 mill/uL (4.70-6.10); White Blood Cell (WBC) Count 5.2 thou/uL (4.8-10.8)
[2020-01-09] MEDS: Polyethylene Glycol 3350 17 GM Packet PO SCH (08:38)
[2020-01-09] MEDS: Aspirin 81 mg Enteric Coated Tablet PO SCH ×2 (08:38→21:02)
[2020-01-09] MEDS: Senokot S 8.6-50 MG TAB PO SCH ×2 (08:40→21:02)
[2020-01-09] MEDS ORDERED: Potassium Phosphate 15 MMOL in Sodium Chloride 0.9% 250 ML 250 ML IVPB SCH (09:00)
--- NOTE | 2020-01-09 10:50 | PRG ---
DATE OF SERVICE: 01/08/2020 HISTORY OF PRESENT ILLNESS: The patient is an 84-year-old man, who was admitted to the hospital status post fall from a tractor in which he sustained a right femoral neck fracture. He has undergone right hip hemiarthroplasty, he is postop day 3 from that. The patient yesterday developed significant nausea and vomiting. An attempt was made for a small bowel follow-through study, but the patient had significant nausea and his contrast was suctioned out via his nasogastric tube. This morning, another attempt were made to get a CT exam, but unfortunately he still had a considered amount of contrast obscuring his abdomen, so he returned to the surgical floor, where he was placed back on nasogastric suction. While there, he also had a midline IV placed for access as he had lost his previous peripheral line. The patient reports that his pain is controlled. His nausea has improved. His colostomy bag does not have a scant amount of air in it and no stool. PHYSICAL EXAMINATION: VITAL SIGNS: Temperature is 98.2, heart rate 82, blood pressure 153/70, respirations 14, and oxygen saturation 97% on room air. GENERAL: The patient is resting comfortably in bed. He is awake, alert, conversant, appropriate. Winifred Coma Scale is 15. HEENT: Unremarkable. LUNGS: Clear to auscultation with moderate inspiratory and expiratory effort. He reports some difficulty taking a full deep breath due to his abdominal pain. HEART: Regular rate and rhythm. ABDOMEN: Soft with minimal diffuse tenderness again with his colostomy bag showing minimal air in it and no stool. EXTREMITIES: Neurovascularly intact x4. LABORATORY FINDINGS: White blood cell count 4.4, hemoglobin 9.9, hematocrit 30.2, and platelets 242. Sodium 140, potassium 4.2 chloride 104, CO2 of 25, BUN 29, creatinine 0.83, and glucose 117. There are no radiographs reviewed this morning. ASSESSMENT AND PLAN: 1. Status post ground level fall with right femoral neck fracture. 2. Postop day 3, status post right hip hemiarthroplasty. 3. Possible ileus versus small bowel obstruction, continue evaluation with CT exam. 4. History of colon cancer. PLAN: Will be to continue evaluating his abdominal complaint, possibly GI consult. We will work on physical and occupational therapy and await placement decision after resolution of his GI complaints. The patient was evaluated this morning with Dr. Crenshaw during rounds. Job ID: [id number]
--- NOTE | 2020-01-09 17:53 | EKG ---
Test Reason : Blood Pressure : / mmHG Vent. Rate : 069 BPM Atrial Rate : 069 BPM P-R Int : 136 ms QRS Dur : 124 ms QT Int : 430 ms P-R-T Axes : 029 028 021 degrees QTc Int : 460 ms Normal sinus rhythm Right bundle branch block Abnormal ECG Confirmed by NATALIE ALFARO, CRISTHIAN ([id number]), order editor ROSSANA VAZQUEZ ([id number]) on 01/09/2020 5:53:26 PM Referred By: Confirmed By:CRISTHIAN ESTRADA MD
--- NOTE | 2020-01-09 22:52 | PRG ---
DATE OF SERVICE: 01/09/2020 SUBJECTIVE: This is an 84-year-old gentleman, who was admitted to the hospital after a fall from a tractor, in which he sustained a right femoral neck fracture. The patient is postop day #4, status post right hip bipolar hemiarthroplasty. The patient does have a history of colon cancer with a colostomy. The patient continues to have nausea and vomiting. The patient continues to have no output or gas from his colostomy. The patient's NG tube is functioning appropriately, at this time, putting out dark green emesis. The patient attempted some clear liquids earlier today, but vomited immediately after. The patient has been able to ambulate some using a walker. The patient's right hip pain is well controlled at this time. OBJECTIVE: VITAL SIGNS: Temperature 97.7, pulse 77, respirations 14, SpO2 of 97% on room air, and blood pressure 159/78. GENERAL: Elderly male resting in bed, moderate distress due to nausea. HEENT: Unremarkable. RESPIRATORY: Good inspiratory and expiratory effort. RESPIRATIONS: Even and nonlabored. CARDIAC: Regular rate. Regular rhythm. ABDOMEN: Distended, soft, mild diffuse tenderness with palpation. Increased hernia size to left lateral colostomy. No air or stool in colostomy bag. No peritoneal signs. EXTREMITIES: Moves all extremities, neurovascularly intact x4. LABORATORY DATA: WBC 5.2, RBC 3.44, hemoglobin 10.9, hematocrit 32.5. Sodium 143, potassium 3.8, BUN 32, creatinine 0.77, estimated GFR greater than 90, magnesium 2.1, phosphorus 2.5. ASSESSMENT: 1. Status post ground level fall with right femoral neck fracture. 2. Postop day #4, status post right hip hemiarthroplasty. 3. Postop ileus with likely small bowel obstruction. 4. History of colon cancer with colostomy. PLAN: N.p.o. NG tube to low wall suction. The patient informed by Dr. Crenshaw very likely has a bowel obstruction and will need surgical repair. The patient and family given the option as the patient previously has had a small bowel obstruction treated at [facility], where his colostomy was placed versus surgical repair here. The patient and family choose to be transferred due to established care at [facility]. Transfer process started by Dr. Crenshaw. The patient was examined by Dr. Crenshaw. Job ID: [id number] [facility]
[2020-01-10] MEDS: Acetaminophen/Codeine 30-300mg Tablet PO SCH ×4 (04:57→22:58)
[2020-01-10] MEDS: Sodium Chloride 0.9% 1,000 ML IV SCH ×3 (05:15→22:57)
[2020-01-10 06:31] LABS: Anion Gap 16 mmol/L (10-20); BUN (Urea Nitrogen) 29 mg/dL (8.4-25.7); Calc. Creatinine Clearance 79 mL/min (70-130); Calcium 8.2 mg/dL (7.8-10.44); Carbon Dioxide 26 mmol/L (23-31); Chloride 107 mmol/L (98-107); Estimated GFR-MDRD Greater than 90; Glucose 95 mg/dL (83-110); Phosphorus 2.5 mg/dL (2.3-4.7); Potassium 3.7 mmol/L (3.5-5.1); Sodium 145 mmol/L (136-145)
[2020-01-10 09:12] LABS: Band 43 % (5-11); Eosinophils 4 % (0-10); Hemoglobin 9.4 g/dL (14.0-18.0); Lymphocytes 19 % (21-51); MDiff Complete? YES; Mean Corpuscular HGB CONC 33.7 g/dL (32.0-36.0); Mean Corpuscular Hemoglobin 30.8 pg (27.0-31.0); Mean Corpuscular Volume 91.5 fL (78.0-98.0); Monocytes 7 % (0-10); Neutrophil 27 % (42-75); Platelet Count 264 thou/uL (130-400); RBC Distribution Width 12.3 % (11.5-14.5); Red Blood Cell (RBC) Count 3.06 mill/uL (4.70-6.10); White Blood Cell (WBC) Count 7.6 thou/uL (4.8-10.8)
[2020-01-10] MEDS: Senokot S 8.6-50 MG TAB PO SCH ×2 (10:12→20:06)
[2020-01-10] MEDS: Aspirin 81 mg Enteric Coated Tablet PO SCH ×2 (10:15→20:06)
[2020-01-10] MEDS: Polyethylene Glycol 3350 17 GM Packet PO SCH (10:16)
[2020-01-10] MEDS: Scopolamine 1.5 mg/72 hour Patch TD SCH (10:16)
[2020-01-10] MEDS: Ondansetron PF 4 MG/2 ML Vial IVP PRN (20:07)
--- NOTE | 2020-01-10 21:56 | RAD ---
Frontal radiograph of the abdomen 01/10/2020 COMPARISON: 01/08/2020 HISTORY: Nasogastric tube placement FINDINGS: This study includes the chest and partially visualized upper abdomen. A nasogastric tube cu rls in the left upper quadrant, likely in the region of the gastric fundus. Motion artifact limits assessment of the lung parenchyma. Patchy nonspecific linear opacities are suspected in the perihilar regions in bilateral lung bases. There is gaseous distention of bowel in the upper abdomen. There is residual contrast media within irvin wel as well. IMPRESSION: Nasogastric tube as above. Nonspecific linear densities in the perihilar regions and both lung bases, limited in assessment secondary to motion. Residual contrast media within dilated loops of bowel in the upper abdomen suspicious for bowel obstruction.
[2020-01-10] MEDS: Famotidine/PF 20 mg/2ml Vial SLOW IVP SCH (22:56)
--- NOTE | 2020-01-11 04:41 | PRG ---
DATE OF SERVICE: 01/10/2020 SUBJECTIVE: The patient was seen this evening during rounds. He was sitting up in bed, awake and alert. He was mildly confused, but cooperative. Reported that his abdominal pain had improved. He has had a large amount of output from his colostomy. NG tube is still in place, suctioned, and there is dark output in canister. OBJECTIVE: VITAL SIGNS: Temperature 98.1, pulse 91, respirations 24, oxygen saturation 93% on room air, blood pressure 153/72. GENERAL: Well-appearing elderly male, sitting up in bed, awake and alert with no signs of acute distress. PULMONARY: Equal chest rise and fall. No signs of acute respiratory distress. ABDOMEN: Soft, nondistended, and nontender. His left-sided colostomy bag has brown soft stool. NEUROLOGIC: GCS is 14, minus 1 for confusion. ASSESSMENT: 1. Status post jump from tractor. 2. Right femoral neck fracture, status post repair. 3. Right distal radius fracture, status post repair. 4. Postoperative ileus, resolving. 5. Periostomy hernia and right ventral hernia. 6. History of colon cancer. PLAN: Continue n.p.o. and NG tube to suction. Continue IV fluids. We discontinued aspirin and put him on Lovenox as he is n.p.o. Continue working with Physical Therapy. Job ID: [id number] [facility]
[2020-01-11] MEDS: Acetaminophen/Codeine 30-300mg Tablet PO SCH (05:09)
[2020-01-11 05:33] LABS: #Eosinphils 0.2 thou/uL (0.0-0.7); #Lymphocytes 1.1 thou/uL (1.20-3.40); #Neutrophils 6.3 thou/uL (1.40-6.50); %Basophils 0.5 % (0.0-1.0); %Eosinophils 2.2 % (0.0-10.0); %Lymphocytes 12.2 % (21.0-51.0); %Monocytes 11.6 % (0.0-10.0); %Neutrophils 73.6 % (42.0-75.0); Hemoglobin 9.2 g/dL (14.0-18.0); Mean Corpuscular HGB CONC 32.8 g/dL (32.0-36.0); Mean Corpuscular Hemoglobin 29.9 pg (27.0-31.0); Mean Corpuscular Volume 91.2 fL (78.0-98.0); Mean Platelet Volume 7.2 fL (7.4-10.4); Platelet Count 275 thou/uL (130-400); RBC Distribution Width 12.7 % (11.5-14.5); Red Blood Cell (RBC) Count 3.09 mill/uL (4.70-6.10); White Blood Cell (WBC) Count 8.6 thou/uL (4.8-10.8)
[2020-01-11 05:57] LABS: Anion Gap 16 mmol/L (10-20); BUN (Urea Nitrogen) 23 mg/dL (8.4-25.7); Calc. Creatinine Clearance 83 mL/min (70-130); Calcium 8.2 mg/dL (7.8-10.44); Carbon Dioxide 23 mmol/L (23-31); Chloride 108 mmol/L (98-107); Estimated GFR-MDRD Greater than 90; Glucose 91 mg/dL (83-110); Magnesium 1.9 mg/dL (1.6-2.6); Phosphorus 2.7 mg/dL (2.3-4.7); Potassium 3.4 mmol/L (3.5-5.1); Sodium 144 mmol/L (136-145)
[2020-01-11] MEDS ORDERED: traMADol HCl 50 MG TAB PO PRN (09:07)
[2020-01-11] MEDS ORDERED: Potassium Phosphate 30 MMOL in Sodium Chloride 0.9% 250 ML 250 ML IVPB SCH (09:15)
[2020-01-11] MEDS: Sodium Chloride 0.9% 1,000 ML IV SCH ×2 (09:15→16:20)
[2020-01-11] MEDS: Enoxaparin Sodium 40 MG/0.4 ML SYRINGE SC SCH (09:18)
[2020-01-11] MEDS: Famotidine/PF 20 mg/2ml Vial SLOW IVP SCH ×2 (09:18→20:22)
[2020-01-11] MEDS: Senokot S 8.6-50 MG TAB PO SCH ×2 (09:22→20:22)
[2020-01-11] MEDS: Polyethylene Glycol 3350 17 GM Packet PO SCH (09:22)
[2020-01-11 13:36] LABS: Bacteria/HPF None Seen HPF (None Seen); Bilirubin Negative (Negative); Blood, Urine Negative (Negative); Clarity Clear (Clear); Glucose, Urine (Dipstick) Normal (Negative); Ketone, Urine 100 mg/dL (Negative); Leukocyte Negative Leu/uL (Negative); Nitrite Negative (Negative); Protein, Urine (Dipstick) 50 mg/dL (Neg-Trace); RBC/HPF 0-3 HPF (0-3); Specific Gravity, Urine 1.024 (1.002-1.036); Squamous Epithelial None Seen HPF (0-3); Urobilinogen Normal mg/dL (Less than 2); WBC/HPF 0-3 HPF (0-3); pH, Urine 5.5 (5.0-9.0)
[2020-01-11] MEDS: Acetaminophen 500 MG TAB PO SCH ×2 (14:25→18:06)
[2020-01-11] MEDS: traMADol HCl 50 MG TAB PO SCH ×2 (14:26→17:59)
--- NOTE | 2020-01-11 14:58 | PRG ---
DATE OF SERVICE: 01/11/2020 SUBJECTIVE: Mr. Yen is an 84-year-old gentleman who is hospital day 7 following repair of hip fracture. He has since been dealing with a postop ileus. Last night, Mr. Yen started vomiting around 9:00 p.m. His NG tube was replaced and he was made n.p.o. At that time, he was also started on Lovenox since he could not take his aspirin. The patient has had 800 mL gastric output since the placement of the NG tube around 9:00 p.m. last night. He is producing stool in his colostomy bag. The patient was seen right after completing physical therapy. PT reports patient is ambulating well, that he is a bit more confused today. The patient says his pain is well controlled and has no complaints. OBJECTIVE: VITAL SIGNS: Temperature 98, pulse 91, respirations 18, O2 saturation 94 on room air, blood pressure 147/67. GENERAL: Elderly man lying in bed. Awake and alert. No signs of acute distress. RESPIRATIONS: Equal chest rise and fall. Clear to auscultation bilaterally. CARDIAC: Regular rate and rhythm. ABDOMEN: Soft, nondistended, and nontender. Left-sided colostomy bag has brown soft stool. NEUROLOGIC: GCS is 14. EXTREMITIES: Moving all extremities well. ASSESSMENT: 1. Status post jump from tractor. 2. Right femoral neck fracture status post repair. 3. Right distal radius fracture status post repair. 4. Postoperative ileus, improving. 5. Periostomy hernia and right ventral hernia. 6. History of colon cancer. PLAN: 1. Continue NG tube to suction and TPN. 2. Continue IV fluids. 3. Discontinue Tylenol 3 and add Tylenol and Ultram. 4. Continue working with Physical therapy. 5. Continue to consider transfer to [facility]. The patient had his colon resection there several years ago for his colon cancer. The patient seemed to be improving from his postop ileus. Yesterday during the day, he had another episode of vomiting last night. We will continue discussions at [facility] and decide if transfer is the most appropriate way to continue. The patient was seen by Dr. Crenshaw during morning rounds. Job ID: [id number]
[2020-01-11 21:27] LABS: Anion Gap 17 mmol/L (10-20); BUN (Urea Nitrogen) 22 mg/dL (8.4-25.7); Calc. Creatinine Clearance 83 mL/min (70-130); Carbon Dioxide 23 mmol/L (23-31); Chloride 110 mmol/L (98-107); Estimated GFR-MDRD Greater than 90; Glucose 81 mg/dL (83-110); Magnesium 1.7 mg/dL (1.6-2.6); Sodium 146 mmol/L (136-145)
[2020-01-11 21:36] LABS: Phosphorus 5.1 mg/dL (2.3-4.7)
[2020-01-11] MEDS ORDERED: Magnesium 2 GM/50 ML 2 GM in Premix Bag 1 BAG IVPB SCH (21:45)
[2020-01-11] MEDS: D5W-AA 4.25% with LYTES 1,000 ML IV SCH (22:33)
[2020-01-11] MEDS ORDERED: Lactated Ringer's 1,000 ML IV SCH (23:45)
[2020-01-12] MEDS: Acetaminophen 500 MG TAB PO SCH ×4 (00:32→18:12)
[2020-01-12] MEDS: traMADol HCl 50 MG TAB PO SCH ×4 (00:33→18:11)
--- NOTE | 2020-01-12 02:02 | PRG ---
DATE OF SERVICE: 01/11/2020 SUBJECTIVE: The patient was seen this evening during rounds. He was awake and alert, mildly confused, re-oriented. He reports that he is feeling fine. Ostomy continues to put out. NG tube is also in place. The patient's urinary output has decreased today, only putting out 100 to 200 for the daytime. He is still n.p.o. OBJECTIVE: VITAL SIGNS: Temperature 97.8, pulse 85, respirations 20, oxygen saturation 97% on room air, and blood pressure 151/70. GENERAL: Well-appearing elderly male, lying in bed, resting comfortably, awake and alert with no signs of acute distress. PULMONARY: Equal chest rise and fall. No signs of acute respiratory distress. ABDOMEN: Soft, nontender, and nondistended. Colostomy bag in place and working appropriately. NEUROLOGIC: GCS is 14, -1 for confusion. ASSESSMENT: 1. Status post jump from tractor. 2. Right femoral neck fracture, status post repair. 3. Right distal radius fracture. 4. Postop ileus, resolving. 5. Lyndsay-colostomy hernia and right ventral hernia. 6. History of colon cancer. PLAN: Continue n.p.o. TPN started at 100 an hour, this is the patient's maintenance rate. He is also receiving 1 L bolus of LR over 4 hours for low urinary output. Repeat blood work in the morning. Continue to monitor urinary output overnight. Continue NG tube to suction. Job ID: [id number] [facility]
[2020-01-12 06:09] LABS: #Eosinphils 0.3 thou/uL (0.0-0.7); #Monocytes 0.9 thou/uL (0.11-0.59); #Neutrophils 7.7 thou/uL (1.40-6.50); %Basophils 0.1 % (0.0-1.0); %Eosinophils 3.3 % (0.0-10.0); %Lymphocytes 9.8 % (21.0-51.0); %Monocytes 8.9 % (0.0-10.0); %Neutrophils 77.9 % (42.0-75.0); Hemoglobin 8.6 g/dL (14.0-18.0); Mean Corpuscular HGB CONC 33.2 g/dL (32.0-36.0); Mean Corpuscular Hemoglobin 30.6 pg (27.0-31.0); Mean Corpuscular Volume 92.3 fL (78.0-98.0); Mean Platelet Volume 7.8 fL (7.4-10.4); Platelet Count 257 thou/uL (130-400); RBC Distribution Width 12.8 % (11.5-14.5); Red Blood Cell (RBC) Count 2.82 mill/uL (4.70-6.10); White Blood Cell (WBC) Count 9.8 thou/uL (4.8-10.8)
[2020-01-12] MEDS: Sodium Chloride 0.9% 1,000 ML IV SCH (06:52)
[2020-01-12 06:57] LABS: Anion Gap 16 mmol/L (10-20); BUN (Urea Nitrogen) 18 mg/dL (8.4-25.7); Calc. Creatinine Clearance 88 mL/min (70-130); Calcium 7.7 mg/dL (7.8-10.44); Carbon Dioxide 22 mmol/L (23-31); Chloride 108 mmol/L (98-107); Estimated GFR-MDRD Greater than 90; Glucose 105 mg/dL (83-110); Magnesium 1.8 mg/dL (1.6-2.6); Phosphorus 2.7 mg/dL (2.3-4.7); Potassium 3.9 mmol/L (3.5-5.1); Sodium 142 mmol/L (136-145)
[2020-01-12] MEDS: Enoxaparin Sodium 40 MG/0.4 ML SYRINGE SC SCH (10:04)
[2020-01-12] MEDS: Famotidine/PF 20 mg/2ml Vial SLOW IVP SCH ×2 (10:05→20:29)
[2020-01-12] MEDS: Senokot S 8.6-50 MG TAB PO SCH ×2 (10:05→20:30)
[2020-01-12] MEDS: Polyethylene Glycol 3350 17 GM Packet PO SCH (10:05)
--- NOTE | 2020-01-12 14:55 | PRG ---
DATE OF SERVICE: 01/12/2020 SUBJECTIVE: Mr. Yen is an 84-year-old gentleman, who is hospital day 8 following repair of a hip fracture. He has since been dealing with a postop ileus versus small bowel obstruction. Mr. Yen is currently n.p.o., but has been tolerating TPN feeds. He received 1 L of lactated Ringer's last night for decreased urine output. He is feeling well on morning rounds and just finished working with physical therapy and says he is working hard. He is having output from his colostomy bag. OBJECTIVE: VITAL SIGNS: Temperature 98.6, pulse 85, respirations 16, O2 saturation 93% on room air, blood pressure 133/67. GENERAL: Elderly man lying in bed. Awake and alert. No signs of acute distress. RESPIRATIONS: Equal chest rise and fall. Clear to auscultation bilaterally. CARDIAC: Regular rate and rhythm. ABDOMEN: Soft, nondistended, and nontender. Left-sided colostomy bag has brown soft stool. EXTREMITIES: Moving all extremities well. LABORATORY DATA: White count 9.8, hemoglobin 8.6, platelets 257. Potassium 3.9, phosphorus 2.7, magnesium 1.8. ASSESSMENT: 1. Status post jump from tractor. 2. Right femoral neck fracture, status post repair. 3. Right distal radius fracture, status post repair. 4. Postoperative ileus, improving. 5. History of colon cancer. PLAN: 1. Urine output improved after 1 L of bolus last night. 2. Replace electrolytes. 3. Advance diet to clear liquid. 4. Keep NG tube in place until we see patient tolerates advancement of diet. 5. Has been approved for [facility] when medically stable for discharge. 6. Follow up with [facility] outpatient. The patient was seen by Dr. Crenshaw during morning rounds. Job ID: [id number] [facility]
[2020-01-12] MEDS: D5W-AA 4.25% with LYTES 1,000 ML IV SCH (20:30)
[2020-01-13] MEDS: traMADol HCl 50 MG TAB PO SCH ×4 (00:31→17:02)
[2020-01-13] MEDS: Acetaminophen 500 MG TAB PO SCH ×4 (00:48→16:59)
--- NOTE | 2020-01-13 01:13 | PRG ---
DATE OF SERVICE: 01/12/2020 This is an 84-year-old male status post fall off tractor with a history of cancer and colostomy. Upon my evaluation. Upon my evaluation this evening, the patient vocalized no complaint. Nursing at bedside vocalized no concerns. Chart has been reviewed. The patient did have a T-max of 99.7. O2 saturation at that time was 94%, this is likely due to atelectasis. Physical exam upon my evaluation was grossly unchanged from previous documentation. Continue care as ordered. Job ID: [id number]
[2020-01-13] MEDS: D5W-AA 4.25% with LYTES 1,000 ML IV SCH (06:23)
[2020-01-13 07:36] LABS: #Eosinphils 0.5 thou/uL (0.0-0.7); #Lymphocytes 1.1 thou/uL (1.20-3.40); #Monocytes 0.9 thou/uL (0.11-0.59); #Neutrophils 9.6 thou/uL (1.40-6.50); %Monocytes 7.5 % (0.0-10.0); %Neutrophils 79.6 % (42.0-75.0); Hemoglobin 9.2 g/dL (14.0-18.0); Mean Corpuscular HGB CONC 32.4 g/dL (32.0-36.0); Mean Corpuscular Hemoglobin 30.2 pg (27.0-31.0); Mean Corpuscular Volume 93.2 fL (78.0-98.0); Mean Platelet Volume 7.3 fL (7.4-10.4); Platelet Count 238 thou/uL (130-400); RBC Distribution Width 12.8 % (11.5-14.5); Red Blood Cell (RBC) Count 3.06 mill/uL (4.70-6.10)
[2020-01-13 07:57] LABS: Anion Gap 13 mmol/L (10-20); BUN (Urea Nitrogen) 19 mg/dL (8.4-25.7); Calc. Creatinine Clearance 88 mL/min (70-130); Calcium 7.8 mg/dL (7.8-10.44); Carbon Dioxide 26 mmol/L (23-31); Chloride 102 mmol/L (98-107); Estimated GFR-MDRD Greater than 90; Glucose 119 mg/dL (83-110); Magnesium 1.7 mg/dL (1.6-2.6); Phosphorus 2.8 mg/dL (2.3-4.7); Potassium 3.7 mmol/L (3.5-5.1); Sodium 137 mmol/L (136-145)
[2020-01-13] MEDS ORDERED: Potassium Phosphate 30 MMOL, Magnesium Sulfate 3 GM in Sodium Chloride 0.9% 250 ML 250 ML IVPB SCH (08:30)
[2020-01-13] MEDS: Senokot S 8.6-50 MG TAB PO SCH (08:38)
[2020-01-13] MEDS: Polyethylene Glycol 3350 17 GM Packet PO SCH (08:38)
[2020-01-13] MEDS: Enoxaparin Sodium 40 MG/0.4 ML SYRINGE SC SCH (08:39)
[2020-01-13] MEDS: Famotidine/PF 20 mg/2ml Vial SLOW IVP SCH (08:39)
[2020-01-13] MEDS: Scopolamine 1.5 mg/72 hour Patch TD SCH (11:17)
[2020-01-13 16:09] VITALS: BP 127/67
[2020-01-13 16:17] VITALS: TEMP 100.7
--- NOTE | 2020-01-14 03:21 | DIS ---
DATE OF ADMISSION: 01/04/2020 DATE OF DISCHARGE: 01/13/2020 ADMISSION DIAGNOSES: 1. Status post fall from approximately 5 feet from a tractor. 2. Right distal radius fracture. 3. Right femoral neck fracture. 4. Acute pain secondary to above. 5. History of colon cancer. 6. Postoperative ileus with suspected partial small-bowel obstruction. CONSULTATIONS: Orthopedics, Dr. Tirado. PROCEDURES: 1. Right hip bipolar hemiarthroplasty. 2. Closed treatment of distal radius fracture. 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 The patient was brought to the emergency department, where he underwent evaluation and examination, was noted to have the above injuries. The following day, he would undergo his orthopedic procedures, which he tolerated well. On postop day #2, the patient started having some significant nausea and vomiting, underwent evaluation, was noted to have what was suspected to be a partial small-bowel obstruction requiring nasogastric tube placement. In light of his significant colon cancer history, his doctor at [facility] was contacted, and he requested that the patient followup with him once he completes his rehab. He asked that the patient also stay on full liquid diet once he is tolerating a diet and this was started and continued at the time of discharge. At the time of discharge, the patient was tolerating full liquid diet. His colostomy was functioning well. His pain was controlled. He was working with Physical and Occupational Therapy. The patient was discharged to [facility] in [place]. His Winifred Coma Scale was 15 at the time of discharge. He will follow up with Dr. Tirado in 2 to 3 weeks, sooner as needed. The patient may follow up with the [facility]uma [facility] as needed and again will follow up with his oncologist at [facility] and they will arrange for the appointment date and time. Job ID: [id number]
== END 2020-01-13 17:45 | disposition swing bed (61) | DRG 522 ==
LOC: ERS 18:42 → SURG B 20:52
PROVIDERS: ADMIT Specialist; ATTEND Surgery
PROC: 0PSHXZZ Reposition Right Radius, External Approach (ICD-10-PCS; 2020-01-04)
PROC: 0SRR01A Replacement of Right Hip Joint, Femoral Surface with Metal Synthetic Substitute, Uncemented, Open Approach (ICD-10-PCS; principal; 2020-01-05)
DX: S72.041A Displaced fracture of base of neck of right femur, initial encounter for closed fracture (principal); S52.501A Unspecified fracture of the lower end of right radius, initial encounter for closed fracture; F05 Delirium due to known physiological condition; K56.7 Ileus, unspecified; K56.600 Partial intestinal obstruction, unspecified as to cause; Z20.828 Contact with and (suspected) exposure to other viral communicable diseases; W17.89XA Other fall from one level to another, initial encounter; K43.9 Ventral hernia without obstruction or gangrene; K43.5 Parastomal hernia without obstruction or gangrene; Z85.038 Personal history of other malignant neoplasm of large intestine; Z92.3 Personal history of irradiation; Z92.21 Personal history of antineoplastic chemotherapy; Z93.3 Colostomy status
CPT/HCPCS: 25600; 36415; 71045; 72170; 74018; 74019; 74176; 74250; 80048; 80053; 81001; 81003; 82550; 83735; 83880; 84100; 85025; 85027; 85610; 85730; 87086; 87635; 93005; 96361; 96374; 96375; C1776; J0690; J1650; J1885; J2270; J2405; J2704; J3010; J3475; J7050; Q9963; S0028; U0003